=== PATIENT | female | born 1990 | race American Indian/Alaskan Native ===

== ENCOUNTER 2018-11-24 17:04 | Emergency (ER) | payer OTHER ==
[2018-11-24] MEDS ORDERED: FUL-GLO OP ONE (17:16)
[2018-11-24] MEDS ORDERED: TETRACAINE 0.5% OU ONE (17:16)
--- NOTE | 2018-11-24 17:16 | Event Note ---
ED Screening Note ED Screening Note: pain in eye for 3 weeks; worse for 3 day no contacts pmh none rx none psh none lmp 11/15 This initial assessment/diagnostic orders/clinical plan/treatment(s) is/are subject to change based on patients health status, clinical progression and re- assessment by fellow clinical providers in the ED. Further treatment and workup at subsequent clinical providers discretion. Patient/guardian urged not to elope from the ED as their condition may be serious if not clinically assessed and managed. Initial orders include: eye exam [facility]
[2018-11-24 17:17] VITALS: BP 154/108
[2018-11-24] MEDS ORDERED: TOBREX OU ONE (17:30)
--- NOTE | 2018-11-24 19:30 | Emergency Department Report ---
[facility] Chief Complaint: Eye Problems Stated Complaint: R EYE PAIN Time Seen by Provider: 11/24/18 17:15 Side: Right Severity: moderate Symptoms: Yes Eye Itching, Yes Eye Redness, Yes Eye Pain (burning ), Yes Mucous Drainage, No Purulent Drainage, No Blurred Vision, No Preceding URI, No H/O Allergic Rhinitis, No Contact Lens Use, No Trauma (finger versus eye 3 weeks ago ), No Fever, No Headache Other History: pt presents for right eye burning tearing after finger to eye 3 weeks ago not getting better no swelling no loss of vision no headache no fever or chills ED Review of Systems ROS: Stated complaint: R EYE PAIN Other details as noted in HPI Constitutional: denies: chills, fever Eyes: eye pain, eye discharge. denies: vision change ENT: denies: ear pain, throat pain Respiratory: denies: cough, shortness of breath, wheezing Cardiovascular: denies: chest pain, palpitations Endocrine: no symptoms reported Gastrointestinal: denies: abdominal pain, nausea, diarrhea Genitourinary: denies: urgency, dysuria, discharge Musculoskeletal: denies: back pain, joint swelling, arthralgia Skin: denies: rash, lesions Neurological: denies: headache, weakness, paresthesias Psychiatric: denies: anxiety, depression Hematological/Lymphatic: as per HPI ED Past Medical Hx - Past Medical History Previous Medical History?: No - Surgical History Past Surgical History?: No - Social History Smoking Status: Never Smoker Substance Use Type: None - Medications Home Medications: Home Medications Medication Instructions Recorded Confirmed Last Taken Type Acetaminophen/Codeine [Tylenol #3] 1 tab PO Q6H PRN #20 tab 03/26/15 Unknown Rx Ibuprofen [Motrin 600 MG tab] 600 mg PO Q8H PRN #30 tablet 03/26/15 Unknown Rx Cetirizine HCl [ZyrTEC 10mg cap] 10 mg PO DAILY #30 capsule 11/24/18 Unknown Rx Ibuprofen [Motrin 800 MG tab] 800 mg PO Q8HR PRN #30 tablet 11/24/18 Unknown Rx [facility] Exam - Exam General: Vital signs noted. No distress. Alert and acting appropriately. Eye Exam: Right Injection, Right Mucous Discharge, Both EOMI, Neither Chemosis, Neither Abnormal Pupil, Neither Eye Foreign Body, Neither Lid Foreign Body, Neither Purulent Discharge, Neither Corneal Edema, Neither Photophobia HEENT: No Nasal Congestion, No Pharyngeal Erythema Remainder of HEENT: Normal ED Course Vital Signs 11/24/18 17:15 Temperature 98.1 F Pulse Rate 81 Respiratory 16 Rate Blood Pressure 154/108 O2 Sat by Pulse 99 Oximetry ED Medical Decision Making - Medical Decision Making eye exam [facility] [place] conjunctival erythema cornea abrasion visual acuity 20/20 bilat noted at 3 oclock plan tobromycin gtts, zyrtec, ibuprofen, follow up with pcp in 2-3 days return to ed if symptoms worsen. pt will follow up with pcp in 2=-3 days. Critical care attestation.: If time is entered above; I have spent that time in minutes in the direct care of this critically ill patient, excluding procedure time. ED Disposition Clinical Impression: Corneal abrasion Qualifiers: Encounter type: initial encounter Laterality: right Qualified Code(s): S05.01XA - Injury of conjunctiva and corneal abrasion without foreign body, right eye, initial encounter Conjunctivitis Qualifiers: Conjunctivitis type: acute Acute conjunctivitis type: bacterial Laterality: right Qualified Code(s): H10.31 - Unspecified acute conjunctivitis, right eye Disposition: DC-01 TO HOME OR SELFCARE Is pt being admited?: No Does the pt Need Aspirin: No Condition: Stable Instructions: Corneal Abrasion (ED), Conjunctivitis (ED) Prescriptions: Ibuprofen [Motrin 800 MG tab] 800 mg PO Q8HR PRN #30 tablet PRN Reason: pain Cetirizine HCl [ZyrTEC 10mg cap] 10 mg PO DAILY #30 capsule Referrals: LUZMA CEVALLOS MD [Staff Physician] - 3-5 Days Forms: Work/School Release Form(ED) Time of Disposition: 19:33
== END 2018-11-24 19:39 | disposition home or self-care (01) ==
LOC: ED 17:04
DX: S05.01XA Injury of conjunctiva and corneal abrasion without foreign body, right eye, initial encounter (principal); H10.31 Unspecified acute conjunctivitis, right eye; X58.XXXA Exposure to other specified factors, initial encounter; Y93.89 Activity, other specified; Y92.89 Other specified places as the place of occurrence of the external cause; Y99.8 Other external cause status

== ENCOUNTER 2019-06-22 10:28 | Inpatient (IN) | payer MEDICAID ==
[2019-06-22] MEDS ORDERED: LACTATED RINGERS 1,000 ML IV SCH (11:00)
[2019-06-22] MEDS ORDERED: LACTATED RINGERS 1,000 ML ONE (11:01)
[2019-06-22] MEDS ORDERED: hydrALAZINE 20 MG/1 ML INJ IV PRN (11:01)
[2019-06-22] MEDS ORDERED: MAGNESIUM SULFATE 40GM/1000ML 40 GM/1,000 ML BAG IV ONE (11:04)
[2019-06-22] MEDS ORDERED: MAGNESIUM SULFATE 4 GM/100 ML BAG IV ONE (11:04)
[2019-06-22] MEDS ORDERED: MORPHINE 4 MG/1 ML INJ IM ONE (11:05)
--- NOTE | 2019-06-22 11:40 | History and Physical Report ---
History of Present Illness Date of examination: 06/22/19 Date of admission: 06/22/19 10:28 Chief complaint: Brought in by ambulance with a lifeless fetus hanging out of the vagina. History of present illness: . 26 wks gestation complicated by severe preeclampsia and iugr. was supposed to go see her regular MD today before events unfolded. Past History Past Medical History: hypertension - Obstetrical History Expected Date of Delivery: 09/19/19 Actual Gestation: 27 Week(s) 2 Day(s) : 2 Para: 1 Medications and Allergies Allergies Allergy/AdvReac Type Severity Reaction Status Date / Time No Known Allergies Allergy Verified 11/24/18 17:05 Home Medications Medication Instructions Recorded Confirmed Last Taken Type Acetaminophen/Codeine [Tylenol #3] 1 tab PO Q6H PRN #20 tab 03/26/15 Unknown Rx Ibuprofen [Motrin 600 MG tab] 600 mg PO Q8H PRN #30 tablet 03/26/15 Unknown Rx Cetirizine HCl [ZyrTEC 10mg cap] 10 mg PO DAILY #30 capsule 11/24/18 Unknown Rx Ibuprofen [Motrin 800 MG tab] 800 mg PO Q8HR PRN #30 tablet 11/24/18 Unknown Rx Active Meds: Active Medications Hydralazine HCl (Apresoline) 5 mg IV Q30MIN PRN PRN Reason: Hypertension Last Admin: 06/22/19 11:00 Dose: 5 mg Documented by: Lactated Ringer's (Lactated Ringers) 1,000 mls @ 125 mls/hr IV DIRECT KARL Nifedipine (Procardia Xl) 30 mg PO QDAY KARL Last Admin: 06/22/19 11:30 Dose: 30 mg Documented by: Review of Systems All systems: negative - Vital Signs Vital signs: Vital Signs Pulse BP 81 185/135 06/22/19 10:38 06/22/19 10:38 Temp Pulse Resp BP Pulse Ox 103 H 139/84 06/22/19 11:28 06/22/19 11:28 - Physical Exam Lungs: Positive: Normal air movement Deep Tendon Reflex Grade: Normal +2 - Obstetrical FHR: other (Zero cardiac activity.) Results All other labs normal. Assessment and Plan - Patient Problems (1) IUFD at 20 weeks or more of gestation Current Visit: Yes Status: Acute (2) Severe pre-eclampsia Current Visit: Yes Status: Acute Plan to address problem: delivery of fetus was completed by spontaneous maternal efforts. patient was started on hydrallazine, labetalol and procardia XL. Potential for seizure is being reduced with IV MgSO4.
[2019-06-22] MEDS ORDERED: OXYTOCIN 20 UNIT/1000ML DRIP 20,000 MILLIUNITS/1,000 ML BAG IV ONE (11:43)
--- NOTE | 2019-06-22 11:47 | Procedure Note ---
OB Delivery Note - Delivery Date of Delivery: 06/22/19 Surgeon: ZITA ELLSWORTH Estimated blood loss: <100cc - Vaginal Intrapartum events: other(please specify) (IUFD, partially delivered on arrival.) Delivery induction: none Delivery monitor: none Route of delivery: Delivery placenta: expressed, manual Episiotomy: none Delivery laceration: none Anesthesia: other (IV morphine) - B at 1 minute: 0 at 5 minutes: 0 Infant Gender: Female
[2019-06-22] MEDS ORDERED: NIFEdipine XL 30 MG TAB PO SCH (12:00)
[2019-06-22] MEDS ORDERED: WITCH HAZEL/ GLYCERIN PAD TP PRN (12:00)
[2019-06-22] MEDS ORDERED: OXYTOCIN 20 UNIT/1000ML DRIP 20 UNITS/1,000 ML BAG IV SCH (12:00)
[2019-06-22] MEDS ORDERED: LANOLIN/ZINC/DIMETHICONE (LANSINOH) 7 GM TP PRN (12:00)
[2019-06-22] MEDS ORDERED: diphenhydrAMINE 25 MG CAP PO PRN (12:00)
[2019-06-22] MEDS ORDERED: ACETAMINOPHEN 325 MG TAB PO PRN (12:00)
[2019-06-22] MEDS ORDERED: ONDANSETRON 4 MG/2 ML INJ IV PRN (12:30)
[2019-06-22] MEDS ORDERED: PROMETHAZINE 25 MG TAB PO PRN (12:30)
[2019-06-22] MEDS ORDERED: PROMETHAZINE 25 MG RECT SUPP PR PRN (12:30)
[2019-06-22] MEDS ORDERED: HYDROcodone/ACETAMINOPHEN 5-325 MG TAB PO PRN (12:30)
[2019-06-22] MEDS ORDERED: IBUPROFEN 600 MG TAB PO SCH (13:00)
[2019-06-22] MEDS ORDERED: MAGNESIUM HYDROXIDE (MOM) ORAL LIQD UDC PO PRN (22:00)
[2019-06-23 00:38] VITALS: BP 116/65
[2019-06-23 00:41] LABS: Hematocrit 37.6 % (30.3-42.9); Hemoglobin 13.3 gm/dl (10.1-14.3)
[2019-06-23] MEDS ORDERED: NIFEdipine XL 30 MG TAB PO SCH (10:00)
[2019-06-23] MEDS ORDERED: PRENATAL VIT27-FE FUMARATE-FOLIC ACID VIT TAB PO SCH (10:00)
== END 2019-06-23 08:30 | disposition left against medical advice (07) | DRG 774 ==
LOC: LD 10:28
PROVIDERS: ADMIT Obstetrics & Gynecology; ATTEND Obstetrics & Gynecology
PROC: 10E0XZZ Delivery of Products of Conception, External Approach (ICD-10-PCS; principal; 2019-06-22)
DX: O14.14 Severe pre-eclampsia complicating childbirth (principal); O10.92 Unspecified pre-existing hypertension complicating childbirth; O36.4XX0 Maternal care for intrauterine death, not applicable or unspecified; O36.5920 Maternal care for other known or suspected poor fetal growth, second trimester, not applicable or unspecified; Z37.1 Single stillbirth; Z3A.26 26 weeks gestation of pregnancy; Z79.899 Other long term (current) drug therapy
CPT/HCPCS: 36415; 85014; 85018; 88305; G0378; J0360; J2270; J2590; J3475; J7120